=== PATIENT | female | born 1965 | race Caucasian/White ===

== ENCOUNTER → 2017-07-14 | Outpatient (CLI) | payer OTHER ==
[2017-07-16 12:59] LABS: HPV Genotype 16 Not Detected (NOTDET); HPV Genotype 18 Not Detected (NOTDET)
[2017-07-23 17:55] LABS: HPV High Risk Other Detected (NOTDET)
== END ==
LOC: LAB 16:04 → LAB SHORT 16:04
PROVIDERS: Obstetrics & Gynecology
DX: Z01.419 Encounter for gynecological examination (general) (routine) without abnormal findings (principal)
CPT/HCPCS: 87624; G0123

== ENCOUNTER → 2017-07-14 | Outpatient (CLI) | payer OTHER | LOC: LAB SHORT 08:12 → PLD 08:12 | DX: R87.612 Low grade squamous intraepithelial lesion on cytologic smear of cervix (LGSIL) (principal); R87.810 Cervical high risk human papillomavirus (HPV) DNA test positive | CPT/HCPCS: 88305 ==